=== PATIENT | male | born 1980 | race Caucasian/White ===

== ENCOUNTER 2017-04-19 16:46 | Emergency (ER) | payer OTHER ==
[~2017-04-19] VITALS: Ht 180.3 cm; Wt 128.9 kg
[2017-04-19 18:04] VITALS: BP 139/74
== END 2017-04-19 18:04 | disposition home or self-care (01) ==
LOC: ED 16:46
DX: L29.8 Other pruritus (principal); I10 Essential (primary) hypertension; E11.9 Type 2 diabetes mellitus without complications; Z88.0 Allergy status to penicillin

== ENCOUNTER 2017-06-25 18:49 | Emergency (ER) | payer OTHER ==
[2017-06-25 23:17] VITALS: BP 142/83
== END 2017-06-25 23:17 | disposition home or self-care (01) ==
LOC: ED 18:49
DX: L03.221 Cellulitis of neck (principal); I10 Essential (primary) hypertension; E11.9 Type 2 diabetes mellitus without complications; Z88.0 Allergy status to penicillin; Z90.49 Acquired absence of other specified parts of digestive tract
CPT/HCPCS: J0696; J3010

== ENCOUNTER 2017-06-28 14:12 | Emergency (ER) | payer OTHER ==
[2017-06-28 19:29] LABS: BASOPHIL % 0.3 % (0-2); PLATELET COUNT 264 x10^3mcL (130-400); RED CELL DISTRIBUTION WIDTH 12.5 % (11.5-14.5)
[2017-06-28 19:42] LABS: CALCIUM 8.8 mg/dL (8.5-10.1); CARBON DIOXIDE 28.5 mmol/L (21-32); CHLORIDE SERUM 98 mmol/L (98-107); CREATININE SERUM 0.8 mg/dL (0.7-1.3); GFR1 > 60 mL/min; GLUCOSE SERUM 260 mg/dL (74-106); POTASSIUM SERUM 4.1 mmol/L (3.5-5.1); SODIUM SERUM 132 mmol/L (136-145)
[2017-06-28 19:47] LABS: ALKALINE PHOSPHATASE 110 U/L (46-116); ALT/SGPT 46 U/L (16-63); AST/SGOT 24 U/L (15-37); BILIRUBIN TOTAL 0.4 mg/dL (0.20-1.00); TOTAL PROTEIN, SERUM 8.2 g/dL (6.4-8.2)
[2017-06-28 19:49] LABS: ALBUMIN 3.2 g/dL (3.4-5.0)
[2017-06-28 21:18] VITALS: BP 148/89
== END 2017-06-28 21:18 | disposition home or self-care (01) ==
LOC: ED 14:12
PROVIDERS: Emergency Medicine
DX: L03.221 Cellulitis of neck (principal); I10 Essential (primary) hypertension; E11.65 Type 2 diabetes mellitus with hyperglycemia; Z79.4 Long term (current) use of insulin; Z79.84 Long term (current) use of oral hypoglycemic drugs; Z90.89 Acquired absence of other organs
CPT/HCPCS: J2001; J3010; J3490; J7030; Q9967

== ENCOUNTER 2018-04-04 16:15 | Emergency (ER) | payer OTHER ==
[~2018-04-04] VITALS: Ht 180.3 cm; Wt 119.7 kg
[2018-04-04 16:28] VITALS: Ht 180.3 cm; Wt 119.7 kg
[2018-04-04 17:43] VITALS: BP 116/63
== END 2018-04-04 17:43 | disposition home or self-care (01) ==
LOC: ED 16:15
DX: E86.0 Dehydration (principal); F10.239 Alcohol dependence with withdrawal, unspecified; I10 Essential (primary) hypertension; E11.9 Type 2 diabetes mellitus without complications; Z90.49 Acquired absence of other specified parts of digestive tract; Z88.0 Allergy status to penicillin
CPT/HCPCS: J7030

== ENCOUNTER 2018-04-20 16:40 | Inpatient (IN) | payer OTHER ==
[~2018-04-20] VITALS: Ht 180.3 cm; Wt 120.2 kg
[2018-04-20 16:45] VITALS: Ht 180.3 cm; Wt 120.2 kg
[2018-04-20 18:24] LABS: UA SPECIFIC GRAVITY >=1.030 (1.005-1.035); microscopic required? YES; urine erythrocyte NEGATIVE (NEGATIVE)
[2018-04-20 18:25] LABS: BASOPHIL % 0.7 % (0-2); PLATELET COUNT 326 x10^3mcL (130-400); RED CELL DISTRIBUTION WIDTH 12.4 % (11.5-14.5)
[2018-04-20 18:34] LABS: CALCIUM 9.4 mg/dL (8.5-10.1); CARBON DIOXIDE 27.7 mmol/L (21-32); CHLORIDE SERUM 102 mmol/L (98-107); GFR1 > 60 mL/min; GLUCOSE SERUM 121 mg/dL (74-106); SODIUM SERUM 138 mmol/L (136-145)
[2018-04-20 18:47] LABS: ALBUMIN 3.8 g/dL (3.4-5.0); ALKALINE PHOSPHATASE 79 U/L (46-116); ALT/SGPT 151 U/L (16-63); AST/SGOT 85 U/L (15-37); BILIRUBIN TOTAL 0.8 mg/dL (0.20-1.00); FREE T4 1.15 ng/dL (0.76-1.46); TOTAL PROTEIN, SERUM 7.8 g/dL (6.4-8.2)
[2018-04-20] MEDS ORDERED: BASAGLAR K100 UNIT/1 SQ (20:59)
[2018-04-20] MEDS ORDERED: ASPIRIN ADULT L81 M5 PO (20:59)
[2018-04-20] MEDS ORDERED: LORAZEPAM1 MG PO (21:00)
[2018-04-20] MEDS ORDERED: AMARYL4 MG PO (21:00)
[2018-04-20] MEDS ORDERED: LOMOTIL1 TAB PO (21:00)
[2018-04-20] MEDS ORDERED: LISINOPRIL10 MG PO (21:00)
[2018-04-20] MEDS ORDERED: PRAVACHOL80 MG PO (21:01)
[2018-04-20] MEDS ORDERED: METFORMIN HYD1000 M2 PO (21:01)
[2018-04-20] MEDS ORDERED: TRAMADOL HCL50 MG PO (21:02)
[2018-04-20] MEDS ORDERED: VITAMIN D32000 I2 PO (21:02)
[2018-04-20 22:33] VITALS: BP 130/71
[2018-04-20 23:03] LABS: CHOLESTEROL/HDL RATIO 3.9; MAGNESIUM 1.7 mg/dL (1.8-2.4); PHOSPHOROUS 4.5 mg/dL (2.5-4.9)
[2018-04-20 23:28] LABS: AMPHETAMINE QUAL UR NONE DETECTED (See below)
[2018-04-20 23:38] LABS: FREE T4 1.17 ng/dL (0.76-1.46); FREE THYROXINE INDEX 3.1 ug/dL (1.4-4.5); T4(THYROXINE) 10.3 ug/dL (4.7-13.3)
[2018-04-21 00:09] LABS: T3 TOTAL 0.98 ng/mL
[2018-04-21 01:48] LABS: AMYLASE 100 U/L (25-115); LIPASE 321 IU/L (73-393)
[2018-04-21 05:27] VITALS: BP 118/68
[2018-04-21 06:30] LABS: BASOPHIL % 0.5 % (0-2); PLATELET COUNT 257 x10^3mcL (130-400)
[2018-04-21 06:39] LABS: CALCIUM 8.4 mg/dL (8.5-10.1); CARBON DIOXIDE 24.8 mmol/L (21-32); CHLORIDE SERUM 105 mmol/L (98-107); CREATININE SERUM 0.8 mg/dL (0.7-1.3); GFR1 > 60 mL/min; GLUCOSE SERUM 180 mg/dL (74-106); POTASSIUM SERUM 4.7 mmol/L (3.5-5.1); SODIUM SERUM 139 mmol/L (136-145)
[2018-04-21 08:37] VITALS: BP 113/67
[2018-04-21 17:18] VITALS: BP 108/65
[2018-04-21 20:35] VITALS: BP 114/66
[2018-04-22 05:21] VITALS: BP 116/62
[2018-04-22 06:19] LABS: BASOPHIL % 0.5 % (0-2); PLATELET COUNT 243 x10^3mcL (130-400); RED CELL DISTRIBUTION WIDTH 12.9 % (11.5-14.5)
[2018-04-22 06:24] LABS: CALCIUM 8.4 mg/dL (8.5-10.1); CARBON DIOXIDE 24.2 mmol/L (21-32); CHLORIDE SERUM 105 mmol/L (98-107); CREATININE SERUM 0.7 mg/dL (0.7-1.3); GFR1 > 60 mL/min; GLUCOSE SERUM 129 mg/dL (74-106); MAGNESIUM 1.8 mg/dL (1.8-2.4); PHOSPHOROUS 3.9 mg/dL (2.5-4.9); POTASSIUM SERUM 4.7 mmol/L (3.5-5.1); SODIUM SERUM 138 mmol/L (136-145)
[2018-04-22 09:07] VITALS: BP 124/71
[2018-04-22 10:20] VITALS: BP 119/69
[2018-04-22] MEDS ORDERED: LEVEMIR100 U/M1 SC (11:18)
[2018-04-22 11:23] VITALS: BP 119/69
[2018-04-22] MEDS ORDERED: HUMALOG100 U/ML SC (11:24)
[2018-04-22] MEDS ORDERED: MECLIZINE HCL12.5 MG PO (11:29)
== END 2018-04-22 13:10 | disposition home or self-care (01) | DRG 48 ==
LOC: ED 16:40 → MU 21:36
PROVIDERS: Emergency Medicine; Family Medicine; Internal Medicine
DX: G90.8 Other disorders of autonomic nervous system (principal); N17.0 Acute kidney failure with tubular necrosis; F10.239 Alcohol dependence with withdrawal, unspecified; E11.65 Type 2 diabetes mellitus with hyperglycemia; E86.0 Dehydration; E78.00 Pure hypercholesterolemia, unspecified; E83.42 Hypomagnesemia; K76.0 Fatty (change of) liver, not elsewhere classified; R80.9 Proteinuria, unspecified; F15.21 Other stimulant dependence, in remission; Z79.4 Long term (current) use of insulin; Z79.82 Long term (current) use of aspirin; Z79.84 Long term (current) use of oral hypoglycemic drugs; Z88.0 Allergy status to penicillin; I10 Essential (primary) hypertension; Z90.49 Acquired absence of other specified parts of digestive tract; H53.8 Other visual disturbances; G89.29 Other chronic pain; M54.9 Dorsalgia, unspecified; Z79.899 Other long term (current) drug therapy; F17.200 Nicotine dependence, unspecified, uncomplicated; Y90.9 Presence of alcohol in blood, level not specified
CPT/HCPCS: 83880; 84439; G0480; J3411; J3475; J3490; J7030; J8597; Q0092

== ENCOUNTER 2018-09-06 20:52 | Emergency (ER) | payer OTHER ==
[~2018-09-06] VITALS: Ht 180.3 cm; Wt 117.5 kg
[~2018-09-06 20:52] MED LIST: AMARYL4 MG PO; ASPIRIN ADULT L81 M5 PO; BASAGLAR K100 UNIT/1 SQ; HUMALOG100 U/ML SC; LEVEMIR100 U/M1 SC; LISINOPRIL10 MG PO; LOMOTIL1 TAB PO; LORAZEPAM1 MG PO; MECLIZINE HCL12.5 MG PO; METFORMIN HYD1000 M2 PO; PRAVACHOL80 MG PO; TRAMADOL HCL50 MG PO; VITAMIN D32000 I2 PO
[2018-09-06 20:58] VITALS: Ht 180.3 cm; Wt 117.5 kg
[2018-09-06 23:11] VITALS: BP 149/87
== END 2018-09-06 23:11 | disposition home or self-care (01) ==
LOC: ED 20:52
DX: L60.0 Ingrowing nail (principal); I10 Essential (primary) hypertension; E11.9 Type 2 diabetes mellitus without complications; Z90.89 Acquired absence of other organs; Z88.0 Allergy status to penicillin; Z98.890 Other specified postprocedural states
CPT/HCPCS: J2001

== ENCOUNTER 2019-01-28 21:02 | Emergency (ER) | payer OTHER ==
[~2019-01-28] VITALS: Ht 180.3 cm; Wt 114.3 kg
[2019-01-28 21:20] VITALS: Ht 180.3 cm; Wt 114.3 kg
[2019-01-28 22:17] VITALS: BP 124/89
== END 2019-01-28 22:17 | disposition home or self-care (01) ==
LOC: ED 21:02
DX: L02.511 Cutaneous abscess of right hand (principal); I10 Essential (primary) hypertension; E11.9 Type 2 diabetes mellitus without complications; Z90.89 Acquired absence of other organs; Z88.0 Allergy status to penicillin; Z98.890 Other specified postprocedural states
CPT/HCPCS: J0696

== ENCOUNTER 2019-02-04 16:59 | Emergency (ER) | payer OTHER ==
[~2019-02-04] VITALS: Ht 180.3 cm; Wt 115.7 kg
[2019-02-04 17:03] VITALS: BP 143/84; Ht 180.3 cm; Wt 115.7 kg
== END 2019-02-04 18:37 | disposition home or self-care (01) ==
LOC: ED 16:59
DX: L02.511 Cutaneous abscess of right hand (principal); I10 Essential (primary) hypertension; E11.9 Type 2 diabetes mellitus without complications; Z88.0 Allergy status to penicillin; Z90.89 Acquired absence of other organs
CPT/HCPCS: 82962; J1885; J2001

== ENCOUNTER 2019-03-03 12:04 | Emergency (ER) | payer OTHER ==
[~2019-03-03] VITALS: Ht 180.3 cm; Wt 111.6 kg
[2019-03-03 13:11] VITALS: BP 128/75
== END 2019-03-03 13:25 | disposition home or self-care (01) ==
LOC: ED 12:04
DX: F32.9 Major depressive disorder, single episode, unspecified (principal); F10.239 Alcohol dependence with withdrawal, unspecified; I10 Essential (primary) hypertension; E11.9 Type 2 diabetes mellitus without complications; Z90.89 Acquired absence of other organs; Z88.0 Allergy status to penicillin

== ENCOUNTER 2019-05-09 02:51 | Emergency (ER) | payer OTHER ==
[~2019-05-09] VITALS: Ht 180.3 cm; Wt 117.9 kg
[2019-05-09 02:52] VITALS: Ht 180.3 cm; Wt 117.9 kg
[2019-05-09 05:56] VITALS: BP 138/72
== END 2019-05-09 05:56 | disposition other institution (70) ==
LOC: ED 02:51
DX: S00.83XA Contusion of other part of head, initial encounter (principal); F10.129 Alcohol abuse with intoxication, unspecified; R45.1 Restlessness and agitation; I10 Essential (primary) hypertension; Z88.0 Allergy status to penicillin; Y93.89 Activity, other specified; Y92.89 Other specified places as the place of occurrence of the external cause; Y99.8 Other external cause status
CPT/HCPCS: J1200; J1630

== ENCOUNTER 2019-05-09 02:51 | Emergency (ER) | payer OTHER | END 2019-05-09 05:56 | disposition other institution (70) | LOC: ED 02:51 | DX: Z02.89 Encounter for other administrative examinations (principal) ==

== ENCOUNTER 2019-12-22 19:44 | Inpatient (IN) | payer OTHER ==
[~2019-12-22] VITALS: Ht 180.3 cm; Wt 115.7 kg
[2019-12-22 20:18] LABS: BASOPHIL % 1.7 % (0-2); PLATELET COUNT 264 x10^3mcL (130-400); RED CELL DISTRIBUTION WIDTH 12.8 % (11.5-14.5)
[2019-12-22 20:44] LABS: CALCIUM 8.5 mg/dL (8.5-10.1); CARBON DIOXIDE 24.1 mmol/L (21-32); CREATININE SERUM 3.3 mg/dL (0.7-1.3)
[2019-12-22 20:49] LABS: BILIRUBIN TOTAL 1.14 mg/dL (0.20-1.00); TOTAL PROTEIN, SERUM 6.6 g/dL (6.4-8.2)
[2019-12-22 20:50] LABS: ALBUMIN 3.1 g/dL (3.4-5.0)
[2019-12-22 21:57] LABS: microscopic required? NO
[2019-12-22 22:04] LABS: UA SPECIFIC GRAVITY <=1.005 (1.005-1.035); urine erythrocyte NEGATIVE (NEGATIVE)
[2019-12-22] MEDS ORDERED: METFORMIN HCL1000 M2 PO (22:42)
[2019-12-22] MEDS ORDERED: PRA40 PO (22:43)
[2019-12-22] MEDS ORDERED: GLIMEPIRIDE4 M1 PO (22:45)
[2019-12-22] MEDS ORDERED: ASPIR 8181 MG PO (22:46)
[2019-12-22] MEDS ORDERED: BASAGLAR K100 UNIT/1 SQ (22:46)
[2019-12-22] MEDS ORDERED: ADMELOG SO100 UNIT/1 (22:51)
[2019-12-22 23:28] LABS: CHOLESTEROL/HDL RATIO 4.6
[2019-12-23 00:07] VITALS: BP 119/59
[2019-12-23 04:57] VITALS: BP 124/83
[2019-12-23 06:21] LABS: BASOPHIL % 0.8 % (0-2); PLATELET COUNT 225 x10^3mcL (130-400); RED CELL DISTRIBUTION WIDTH 13.1 % (11.5-14.5)
[2019-12-23 06:33] LABS: BILIRUBIN DIRECT 0.21 mg/dL (0.0-0.2); BILIRUBIN TOTAL 0.83 mg/dL (0.20-1.00)
[2019-12-23 06:53] LABS: ALBUMIN 2.8 g/dL (3.4-5.0); TOTAL PROTEIN, SERUM 5.6 g/dL (6.4-8.2)
[2019-12-23 08:20] LABS: CARBON DIOXIDE 19.9 mmol/L (21-32); CREATININE SERUM 2.6 mg/dL (0.7-1.3); MAGNESIUM 1.9 mg/dL (1.8-2.4); PHOSPHOROUS 4.5 mg/dL (2.5-4.9); POTASSIUM SERUM 4.4 mmol/L (3.5-5.1)
[2019-12-23 08:27] LABS: CALCIUM 8.3 mg/dL (8.5-10.1)
[2019-12-23 09:26] VITALS: BP 125/74
[2019-12-23 11:01] LABS: AMPHETAMINE QUAL UR NONE DETECTED (See below)
[2019-12-23 13:39] VITALS: BP 126/72
[2019-12-23 18:22] VITALS: BP 123/79
[2019-12-23 20:47] VITALS: BP 137/84
[2019-12-24 05:33] VITALS: BP 123/76
[2019-12-24 06:33] LABS: BASOPHIL % 0.7 % (0-2); PLATELET COUNT 239 x10^3mcL (130-400); RED CELL DISTRIBUTION WIDTH 12.6 % (11.5-14.5)
[2019-12-24 06:39] LABS: CARBON DIOXIDE 24.5 mmol/L (21-32); CREATININE SERUM 1.4 mg/dL (0.7-1.3); MAGNESIUM 1.7 mg/dL (1.8-2.4); PHOSPHOROUS 4.6 mg/dL (2.5-4.9)
[2019-12-24 08:10] VITALS: BP 126/64
[2019-12-24] MEDS ORDERED: COZ25 PO (10:33)
[2019-12-24] MEDS ORDERED: LANTI SQ (11:05)
[2019-12-24 11:22] VITALS: BP 126/64
[2019-12-24 11:52] VITALS: BP 122/78
== END 2019-12-24 12:48 | disposition home or self-care (01) | DRG 282 ==
LOC: ED 19:44 → MU 21:44
PROVIDERS: Emergency Medicine; ADMIT Student in an Organized Health Care Education/Training Program
DX: K85.20 Alcohol induced acute pancreatitis without necrosis or infection (principal); N17.0 Acute kidney failure with tubular necrosis; E44.1 Mild protein-calorie malnutrition; I10 Essential (primary) hypertension; E11.65 Type 2 diabetes mellitus with hyperglycemia; E78.00 Pure hypercholesterolemia, unspecified; E80.6 Other disorders of bilirubin metabolism; F10.20 Alcohol dependence, uncomplicated; Z79.4 Long term (current) use of insulin; Z79.82 Long term (current) use of aspirin; Z87.891 Personal history of nicotine dependence; Z79.84 Long term (current) use of oral hypoglycemic drugs; Z90.49 Acquired absence of other specified parts of digestive tract; Z82.49 Family history of ischemic heart disease and other diseases of the circulatory system; Z88.0 Allergy status to penicillin
CPT/HCPCS: 82962; 87804; G0378; G0480; J1815; J1885; J2270; J2765; J7030; Q0092

== ENCOUNTER 2020-02-03 09:02 | Emergency (ER) | payer OTHER, SELFPAY ==
[~2020-02-03] VITALS: Ht 180.3 cm; Wt 116.6 kg
[~2020-02-03 09:02] MED LIST changes: +ADMELOG SO100 UNIT/1; +ASPIR 8181 MG PO; +COZ25 PO; +GLIMEPIRIDE4 M1 PO; +LANTI SQ; +METFORMIN HCL1000 M2 PO; +PRA40 PO
[2020-02-03 09:20] VITALS: Ht 180.3 cm; Wt 116.6 kg
[2020-02-03 09:27] VITALS: BP 127/82
== END 2020-02-03 10:34 | disposition home or self-care (01) ==
LOC: ED 09:02
DX: F41.9 Anxiety disorder, unspecified (principal); I10 Essential (primary) hypertension; E11.9 Type 2 diabetes mellitus without complications; Z20.828 Contact with and (suspected) exposure to other viral communicable diseases; Z88.0 Allergy status to penicillin; Z90.49 Acquired absence of other specified parts of digestive tract
CPT/HCPCS: 82962; U0003-CS

== ENCOUNTER 2020-02-15 18:40 | Inpatient (IN) | payer OTHER, SELFPAY ==
[~2020-02-15] VITALS: Ht 180.3 cm; Wt 116.8 kg
[2020-02-15 19:19] LABS: BASOPHIL % 1.3 % (0-2); PLATELET COUNT 277 x10^3mcL (130-400); RED CELL DISTRIBUTION WIDTH 12.8 % (11.5-14.5)
[2020-02-15 19:24] VITALS: Ht 180.3 cm; Wt 116.8 kg
[2020-02-15 19:28] LABS: CALCIUM 8.8 mg/dL (8.5-10.1); CARBON DIOXIDE 24.3 mmol/L (21-32); POTASSIUM SERUM 4.1 mmol/L (3.5-5.1)
[2020-02-15 19:32] LABS: BILIRUBIN TOTAL 0.7 mg/dL (0.20-1.00); TOTAL PROTEIN, SERUM 6.5 g/dL (6.4-8.2)
[2020-02-15 19:34] LABS: ALBUMIN 3.3 g/dL (3.4-5.0)
[2020-02-15] MEDS ORDERED: BASAGLAR K100 UNIT/1 SQ (20:34)
[2020-02-15 21:20] LABS: CHOLESTEROL/HDL RATIO 5.9
[2020-02-15 23:39] VITALS: BP 110/67
[2020-02-16 05:54] VITALS: BP 119/64
[2020-02-16 07:09] LABS: BASOPHIL % 0.6 % (0-2); PLATELET COUNT 220 x10^3mcL (130-400); RED CELL DISTRIBUTION WIDTH 12.9 % (11.5-14.5)
[2020-02-16 07:33] LABS: CALCIUM 8.2 mg/dL (8.5-10.1); CREATININE SERUM 3.2 mg/dL (0.7-1.3); MAGNESIUM 1.8 mg/dL (1.8-2.4); PHOSPHOROUS 5.7 mg/dL (2.5-4.9); POTASSIUM SERUM 4.2 mmol/L (3.5-5.1)
[2020-02-16 09:04] VITALS: BP 125/77
[2020-02-16 17:10] VITALS: BP 135/80
[2020-02-16 21:17] VITALS: BP 122/78
[2020-02-16 21:40] LABS: microscopic required? NO
[2020-02-16 22:09] LABS: urine erythrocyte NEGATIVE (NEGATIVE)
[2020-02-16 22:16] LABS: AMPHETAMINE QUAL UR POSITIVE (See below)
[2020-02-17 05:56] VITALS: BP 128/72
[2020-02-17 07:42] LABS: BASOPHIL % 0.7 % (0-2); PLATELET COUNT 217 x10^3mcL (130-400); RED CELL DISTRIBUTION WIDTH 12.8 % (11.5-14.5)
[2020-02-17 07:55] LABS: CALCIUM 8.3 mg/dL (8.5-10.1); CARBON DIOXIDE 24.6 mmol/L (21-32); CHLORIDE SERUM 105 mmol/L (98-107); CREATININE SERUM 1.3 mg/dL (0.7-1.3); GFR1 > 60 mL/min; GLUCOSE SERUM 143 mg/dL (74-106); MAGNESIUM 1.8 mg/dL (1.8-2.4); POTASSIUM SERUM 3.7 mmol/L (3.5-5.1); SODIUM SERUM 138 mmol/L (136-145)
[2020-02-17 09:05] VITALS: BP 124/80
[2020-02-17 12:33] VITALS: BP 128/79
[2020-02-17 17:30] VITALS: BP 143/80
[2020-02-17 21:43] VITALS: BP 134/80
[2020-02-18 05:17] VITALS: BP 135/87
[2020-02-18 06:46] LABS: BASOPHIL % 0.7 % (0-2); PLATELET COUNT 231 x10^3mcL (130-400)
[2020-02-18 07:21] LABS: CALCIUM 8.6 mg/dL (8.5-10.1); CARBON DIOXIDE 25.5 mmol/L (21-32); CHLORIDE SERUM 105 mmol/L (98-107); CREATININE SERUM 0.9 mg/dL (0.7-1.3); GFR1 > 60 mL/min; GLUCOSE SERUM 165 mg/dL (74-106); POTASSIUM SERUM 4.2 mmol/L (3.5-5.1); SODIUM SERUM 138 mmol/L (136-145)
[2020-02-18 08:09] VITALS: BP 128/65
[2020-02-18 11:19] VITALS: BP 128/65
[2020-02-18 11:25] VITALS: BP 128/65
[2020-02-18 11:42] VITALS: BP 151/87
== END 2020-02-18 12:00 | disposition home or self-care (01) | DRG 282 ==
LOC: ED 18:40 → MU 20:20
PROVIDERS: Emergency Medicine; ADMIT Internal Medicine; ATTEND Internal Medicine
DX: K85.20 Alcohol induced acute pancreatitis without necrosis or infection (principal); N17.0 Acute kidney failure with tubular necrosis; E11.65 Type 2 diabetes mellitus with hyperglycemia; E11.9 Type 2 diabetes mellitus without complications; Z88.0 Allergy status to penicillin; I10 Essential (primary) hypertension; E78.00 Pure hypercholesterolemia, unspecified; G89.29 Other chronic pain; M54.9 Dorsalgia, unspecified; F32.9 Major depressive disorder, single episode, unspecified; E78.5 Hyperlipidemia, unspecified; E44.1 Mild protein-calorie malnutrition; R74.0 Nonspecific elevation of levels of transaminase and lactic acid dehydrogenase [LDH]; F10.10 Alcohol abuse, uncomplicated; Z68.34 Body mass index [BMI] 34.0-34.9, adult; Z90.49 Acquired absence of other specified parts of digestive tract; Z20.828 Contact with and (suspected) exposure to other viral communicable diseases
CPT/HCPCS: 82962; 83880; 87804; G0378; J1815; J2270; J7030; Q0092; U0003-CS

== ENCOUNTER 2020-03-19 12:20 | Emergency (ER) | payer OTHER, SELFPAY ==
[~2020-03-19] VITALS: Ht 180.3 cm; Wt 108.9 kg
[2020-03-19 12:42] VITALS: Ht 180.3 cm; Wt 108.9 kg
[2020-03-19 14:45] VITALS: BP 109/68
== END 2020-03-19 14:45 | disposition home or self-care (01) ==
LOC: ED 12:20
DX: U07.1 COVID-19 (principal); I10 Essential (primary) hypertension; E11.9 Type 2 diabetes mellitus without complications; E78.00 Pure hypercholesterolemia, unspecified; N17.9 Acute kidney failure, unspecified
CPT/HCPCS: U0003-CS